=== PATIENT | male | born 1990 | race Caucasian/White ===

== ENCOUNTER 2016-11-09 11:35 | Emergency (ER) | payer SELFPAY ==
[~2016-11-09 11:35] MED LIST: Triple Antibiotic Oint 1 GM Packet ONE
--- NOTE | 2016-11-09 12:22 | RAD ---
RIGHT HAND 3 VIEWS: Date: 11/09/16 HISTORY: Injury to fourth finger yesterday. FINDINGS: On the PA view, I cannot exclude a subtle fracture involving the tuft of the distal phalanx of the f ourth finger. This is not confirmed on the oblique or lateral view. No other fracture or osseous abn ormality identified. MCP and IP joints are unremarkable. IMPRESSION: Question subtle fracture involving the tuft of the distal phalanx of the fourth finger. Recommend cl inical correlation regarding site of injury and tenderness. POS: JOSE
[2016-11-09] MEDS ORDERED: Cephalexin 500 MG CAP ONE (12:41)
== END 2016-11-09 12:47 | disposition home or self-care (01) ==
LOC: MADERS 11:35
DX: S62.634A Displaced fracture of distal phalanx of right ring finger, initial encounter for closed fracture (principal); S60.041A Contusion of right ring finger without damage to nail, initial encounter; S61.214A Laceration without foreign body of right ring finger without damage to nail, initial encounter; F17.210 Nicotine dependence, cigarettes, uncomplicated; W27.8XXA Contact with other nonpowered hand tool, initial encounter
CPT/HCPCS: 99283

== ENCOUNTER 2018-01-27 16:04 | Emergency (ER) | payer SELFPAY ==
[2018-01-27] MEDS ORDERED: Adacel (T-DAP) 0.5 ML VIAL ONE (17:07)
[2018-01-27] MEDS ORDERED: Clindamycin 150 MG CAP ONE (17:07)
== END 2018-01-27 17:15 | disposition home or self-care (01) ==
LOC: MADERS 16:04
DX: T63.301A Toxic effect of unspecified spider venom, accidental (unintentional), initial encounter (principal); L03.113 Cellulitis of right upper limb; F17.210 Nicotine dependence, cigarettes, uncomplicated
CPT/HCPCS: 90715; 99283

== ENCOUNTER 2018-10-23 15:02 | Emergency (ER) | payer SELFPAY ==
[2018-10-23] MEDS ORDERED: Promethazine HCl 25 MG/ML VIAL ONE (17:08)
[2018-10-23] MEDS ORDERED: Sodium Chloride 0.9% 1,000 ML ONE (17:08)
[2018-10-23] MEDS ORDERED: Ketorolac Tromethamine 30 MG/ML VIAL ONE (17:08)
== END 2018-10-23 17:55 | disposition home or self-care (01) ==
LOC: MADERS 15:02
DX: R51 Headache (principal); F17.210 Nicotine dependence, cigarettes, uncomplicated; Z71.6 Tobacco abuse counseling
CPT/HCPCS: 96365; 96375; 99406; J1885; J2550; J7050